=== PATIENT | female | born 1965 | race Asian ===

== ENCOUNTER 2025-02-16 17:22 | Emergency (ER) | payer OTHER ==
[~2025-02-16] VITALS: Ht 149.9 cm; Wt 68.7 kg
[~2025-02-16 17:22] MED LIST: MECLIZINE HCL12.5 MG PO
[2025-02-16] MEDS ORDERED: ONDANSETRON HCL INJ 2MG/ML 2ML 2 MG/ML VIAL IV STA (17:30)
[2025-02-16] MEDS: DIPHENHYDRAMINE HCL INJ 50 MG/ML VIAL IV ONE (18:18)
[2025-02-16] MEDS: SODIUM CHLORIDE 0.9% 1000ML 1,000 ML IV ONE (18:18)
[2025-02-16] MEDS: FAMOTIDINE 20 MG/2 ML VIAL IV STA (18:18)
[2025-02-16] MEDS: METOCLOPRAMIDE HCL 10 MG/2ML VIAL IV ONE (18:18)
[2025-02-16] MEDS: KETOROLAC TROMETHAMINE 30 MG/ML VIAL IV STA (18:18)
[2025-02-16] MEDS ORDERED: AMLODIPINE BESYL5 MG PO (18:41)
[2025-02-16] MEDS ORDERED: CYMBALTA30 MG (18:41)
[2025-02-16] MEDS ORDERED: LISINOPRIL-HCT1 EACH (18:41)
[2025-02-16] MEDS ORDERED: RIZATRIPTAN10 M1 (18:41)
[2025-02-16] MEDS ORDERED: GLUCOSAMINE1000 MG (18:41)
[2025-02-16] MEDS ORDERED: ATORVASTATIN CA20 MG PO (18:41)
[2025-02-16] MEDS ORDERED: MAGNESIUM OXID400 MG PO (18:41)
[2025-02-16] MEDS ORDERED: NAPROSYN500 MG PO (18:41)
[2025-02-16] MEDS ORDERED: PROPRANOLOL HCL20 MG (18:41)
[2025-02-16] MEDS ORDERED: IOPAMIDOL 370 MG/ML 100 ML INFUS..BTL INJ ONE (19:06)
[2025-02-16] MEDS ORDERED: KETOROLAC TROME10 MG PO (20:47)
[2025-02-16] MEDS ORDERED: REGLAN10 MG PO (20:47)
[2025-02-16 22:25] VITALS: PULSE 85; RESP 17; TEMP 97.9
[2025-02-16 22:31] VITALS: BP 126/70; O2SAT 98
== END 2025-02-16 22:33 | disposition home or self-care (01) ==
LOC: FSED 17:27
DX: G43.909 Migraine, unspecified, not intractable, without status migrainosus (principal); R42 Dizziness and giddiness; R11.2 Nausea with vomiting, unspecified; I10 Essential (primary) hypertension; E78.5 Hyperlipidemia, unspecified; K21.9 Gastro-esophageal reflux disease without esophagitis
CPT/HCPCS: 70450; 71046; 74177; 80048; 81003; 84484; 85025; 93005; 96374; 96375; 99284; J1200; J1308; J1885; J2765; J7030; Q9967